=== PATIENT | female | born 1995 | race Caucasian/White ===

== ENCOUNTER 2022-08-23 01:15 | Emergency (ER) | payer MEDICAID ==
[~2022-08-23] VITALS: Ht 154.9 cm; Wt 72.6 kg
[2022-08-23] MEDS ORDERED: LIDOCAINE VISCOUS 2% UD 15 ML UDC MM ONE (02:00)
[2022-08-23] MEDS ORDERED: AMOX/CLAVULANATE 875 MG TABLET PO ONE (02:00)
[2022-08-23] MEDS ORDERED: DEXAMETHASONE SOD PHOSPHATE 10 MG/ML VIAL IM ONE (02:00)
[2022-08-23] MEDS ORDERED: KETOROLAC TROMETHAMINE INJ 60 MG/2 ML VIAL IM ONE (02:00)
--- NOTE | 2022-08-23 02:00 | NUR ---
BIBS FOR C/O SORE THROAT AND SWOLLEN TONSILS REPORTS DIFFICULTY SWALOLOWING RR EVEN AND UNLABORED. ALL V/S WNL.
[2022-08-23] MEDS ORDERED: PRED50TA PO (02:11)
[2022-08-23] MEDS ORDERED: IBUP-1955 PO (02:11)
[2022-08-23] MEDS ORDERED: AMOX-430 PO (02:11)
[2022-08-23] MEDS ORDERED: DEXAMETHASONE SOD PHOSPHATE 10 MG/ML VIAL ONE (02:25)
[2022-08-23] MEDS ORDERED: LIDOCAINE VISCOUS 2% UD 15 ML UDC ONE (02:25)
[2022-08-23] MEDS ORDERED: KETOROLAC TROMETHAMINE INJ 30 MG/ML VIAL ONE (02:25)
[2022-08-23] MEDS ORDERED: AMOX/CLAVULANATE 875 MG TABLET ONE (02:26)
--- NOTE | 2022-08-23 02:40 | NUR ---
RAPID STREP SENT TO LAB
--- NOTE | 2022-08-23 02:42 | NUR ---
Patient discharged to home in stable condition. Written and verbal after care instructions given. Patient verbalizes understanding of instruction.
[2022-08-23 02:43] VITALS: BP 128/66
== END 2022-08-23 02:43 | disposition home or self-care (01) ==
LOC: ER 01:18
DX: J36 Peritonsillar abscess (principal)
CPT/HCPCS: 99284; 96372; 87880; J1100; J1885; 86403-TC